=== PATIENT | female | born 1995 | race Two or more races ===

== ENCOUNTER 2023-12-10 17:33 | Emergency (ER) | payer OTHER ==
[~2023-12-10] VITALS: Ht 160 cm; Wt 54.4 kg
[2023-12-10 17:38] VITALS: TEMP 99.1
[2023-12-10] MEDS ORDERED: HYDROCODONE/APAP 5/325MG TABLET ONE (19:28)
[2023-12-10] MEDS: HYDROCODONE/APAP 5/325MG TABLET PO ONE (19:32)
[2023-12-10] MEDS ORDERED: BACL5TAB PO (20:41)
[2023-12-10] MEDS ORDERED: KETO10TA2 PO (20:41)
[2023-12-10 20:50] VITALS: BP 120/75; O2SAT 97
== END 2023-12-10 20:50 | disposition home or self-care (01) ==
LOC: ER 17:41
DX: S06.0X0A Concussion without loss of consciousness, initial encounter (principal); S16.1XXA Strain of muscle, fascia and tendon at neck level, initial encounter; S40.011A Contusion of right shoulder, initial encounter; F17.200 Nicotine dependence, unspecified, uncomplicated; Z79.899 Other long term (current) drug therapy; V89.2XXA Person injured in unspecified motor-vehicle accident, traffic, initial encounter; Y93.89 Activity, other specified; Y92.89 Other specified places as the place of occurrence of the external cause; Y99.8 Other external cause status
CPT/HCPCS: 70450-TC; 72050-TC; 73030-TC